=== PATIENT | female | born 1970 | race Hispanic/Latino ===

== ENCOUNTER 2025-03-07 07:25 | Day surgery (SDC) | payer OTHER ==
[2025-03-05 10:31] VITALS: BP 137/81; PULSE 61; RESP 18; TEMP 97.9
[2025-03-05 10:31] LABS: BASOPHILS # (AUTO) 0.01 K/uL (0.00-0.20); BASOPHILS % (AUTO) 0.2 % (0.0-5.0); EOSINOPHILS % (AUTO) 3.3 % (0.0-8.0); HEMATOCRIT 41.3 % (36-48); IMMATURE GRANULOCYTE ABSOLUTE 0.01 K/uL (0-1); LYMPHOCYTES # (AUTO) 2.2 K/uL (1.0-4.8); LYMPHOCYTES % (AUTO) 37.5 % (21.0-51.0); MEAN CORPUSCULAR HEMOGLOBIN 28.5 pg (27.0-33.0); MEAN CORPUSCULAR HGB CONC 32.4 g/dL (32.0-36.0); MEAN CORPUSCULAR VOLUME 87.7 fL (79-99); MONOCYTES # (AUTO) 0.5 K/uL (0.1-1.0); MONOCYTES % (AUTO) 8.4 % (3.0-13.0); NEUTROPHILS % (AUTO) 50.4 % (40.0-77.0); PLATELET COUNT (AUTO) 252 K/uL (130-400); RED BLOOD CELL COUNT(AUTO) 4.71 MIL/uL (4.00-5.50); RED CELL DISTRIBUTION WIDTH 13.9 % (11.0-15.5)
[2025-03-05 10:43] LABS: CREATININE 0.6 mg/dL (0.5-1.0); POTASSIUM 4.5 mmol/L (3.5-5.1)
[2025-03-05 11:02] LABS: INR 0.96 (0.85-1.15); PROTHROMBIN TIME 10.2 SEC (9.6-11.6)
[2025-03-05 11:04] LABS: PARTIAL THROMBOPLASTIN TIME 28.6 SEC (26.3-35.5)
--- NOTE | 2025-03-05 11:09 | EKG ---
[facility] Test Date: 2025-03-05 Test Time: 10:23:02 Pat Name: FRANKY [place] Department: [facility] Room: Gender: [employer] Director: [id number] : 1970 Requested By: SANTIAGO MCLEAN Order Number: [id number] Reading MD: Tom Carrera Measurements Intervals [place] Rate: 55 P: 35 AL: 149 QRS: 21 QRSD: 97 T: 20 QT: 427 QTc: 408 Interpretive Statements Sinus rhythm No previous ECG available for comparison Electronically Signed On 03-05-2025 16:18:47 CDT by Tom Carrera Please click the below link to view image of tracing.
[~2025-03-07] VITALS: Ht 165.1 cm; Wt 76.8 kg
[2025-03-07] VITALS (13 sets, daily range): BP systolic 106–121; BP diastolic 56–75; PULSE 57–66; RESP 14–18; TEMP 97–97.5
[~2025-03-07 07:25] MED LIST: ESTR0.5T2 PO; LEVO50CA5 PO; MEDR2.5T6 PO; MULT-700 PO; [UNRECOGNIZED DRUG - OTHER] CHEW
[2025-03-07] MEDS: ceFAZolin SODIUM 2 GM VIAL ONE (07:53)
[2025-03-07] MEDS: metRONIDazole 500MG/100ML BAG 200 ML ONE (07:53)
[2025-03-07] MEDS ORDERED: INDOCYANINE GREEN 25 MG VIAL IJ ONE (09:14)
[2025-03-07] MEDS: INDOCYANINE GREEN 25 MG VIAL IJ ONE (09:20)
[2025-03-07] MEDS ORDERED: SUGAMMADEX SODIUM 200 MG/2 ML VIAL IV ONE (09:28)
[2025-03-07] MEDS ORDERED: MIDAZOLAM HCL 1 MG/ML 2ML VIAL ONE (09:31)
[2025-03-07] MEDS ORDERED: LIDOCAINE PF 100MG/5ML (2%) SYRINGE 5ML ONE (09:31)
[2025-03-07] MEDS ORDERED: proPOFol 10 MG/ML 20ML VIAL IV ONE (09:31)
[2025-03-07] MEDS ORDERED: SUCCINYLCHOLINE CHLORIDE 20 MG/ML 10 ML VIAL ONE (09:31)
[2025-03-07] MEDS ORDERED: BUPIvacaine/PF 0.25% 30ML VIAL IJ ONE (09:32)
[2025-03-07] MEDS ORDERED: FENTanyl CITRate PF 50 MCG/1 ML 2ML VIAL ONE (09:32)
[2025-03-07] MEDS ORDERED: rocuRONium bROMide 10MG/1ML 5ML VL ONE ×2 (09:32→10:22)
[2025-03-07] MEDS ORDERED: ondanSETRON 4MG INJ ONE ×2 (09:44→11:19)
[2025-03-07] MEDS ORDERED: dexaMETHasone SOD PHOSPHATE 10MG/ML 1ML VIAL ONE ×2 (09:44→11:18)
[2025-03-07] MEDS: LACTATED RINGERS 1000ML 1,000 ML IV ONE (10:05)
--- NOTE | 2025-03-07 10:43 | OP ---
Operative Note: DATE OF PROCEDURE: 03/07/25 SURGEON: SANTIAGO MCLEAN MD INJECTION MOLD TOOLING TECHNICIAN: Boogie Mclean MD p.a. C ANESTHESIA: General and local ANESTHESIOLOGIST/DATA MINING ANALYST: [facility] anesthesia team PREOPERATIVE DIAGNOSIS: Symptomatic cholelithiasis POSTOPERATIVE DIAGNOSIS: As above SYNOPSIS: Robotic cholecystectomy with IC green cholangiogram performed without complication PROCEDURE: Robotic assisted cholecystectomy with IC green intraoperative cholangiogram ESTIMATED BLOOD LOSS: Minimal, less than 20 cc INDICATIONS: As above DESCRIPTION OF PROCEDURE: After standard precautions and preparations were undertaken a Veress needle and optical trocar were used to enter the abdominal cavity. All other instruments were placed under direct vision. The robotic system was docked in the standard fashion. We retracted the gallbladder fundus cephalad and began working around the infundibulum. A critical view of safety was achieved by identifying a single duct and single vascular structure entering the infundibulum. The duct was verified to be the cystic duct utilizing IC green and firefly visual technology to perform an intraoperative cholangiogram. We could trace the cystic duct back to the junction of the common bile and common hepatic duct and follow these such that we could see passage of bile into the duodenum. The structures were clipped and divided and monopolar cautery was used to remove the attachments between the gallbladder and gallbladder fossa. The specimen was placed in an Endo-Catch bag and removed from the abdominal cavity without issue. Prior to ending the case we verified that the patient appeared hemostatic with no leakage of bile and the clips were in their appropriate locations. All instrument counts were verified as correct. SANTIAGO MCLEAN MD March 07, 2025 10:43
[2025-03-07] MEDS ORDERED: ketOROlac 30MG VIAL (30MG/ML) ONE ×2 (10:47→12:36)
[2025-03-07] MEDS: FENTanyl CITRate PF 50 MCG/1 ML 2ML VIAL ONE (11:09)
[2025-03-07] MEDS ORDERED: dexaMETHasone SOD PHOSPHATE 4 MG/ML 1ML VIAL ONE (11:18)
--- NOTE | 2025-03-07 12:14 | NUR ---
DO NOT DRIVE FOR 24 HOURS NO ALCOHOL X 24 HOURS. Low Fat [place] diet. No lifting more than 15 lbs x 1 Month. KEEP YOUR APPOINTMENT WITH YOUR DOCTOR CALL YOUR DOCTOR IF YOU HAVE SIGNS OF INFECTION: INCREASED SWELLING, REDNESS, DISCHARGE, FEVER CALL YOUR DOCTOR IF YOU HAVE WORSENING PAIN OR ANY CONCERNS.FOLLOW DISCHARGE INSTRUCTIONS EDUCATIONAL HANDOUTS PROVIDED AND SIGNED FOR. Full and complete discharge instructions given to Patient and Family both verbally and in writing. Explained SURGICAL procedure precautions and follow up. All questions answered. PIV removed with catheter tip intact. Home with Family W/C to POV.
[2025-03-07] MEDS ORDERED: GLYCOPYRROLATE 0.2 MG/ML 5 ML VIAL ONE (12:36)
[2025-03-07] MEDS ORDERED: NEOSTIGMINE METHYLSULFATE 1MG/ML IV ONE (12:36)
--- NOTE | 2025-03-07 13:35 | PN ---
GENERAL SURGERY PROGRESS NOTE Date/Time Patient Seen: [ 03/07/2025 11:30 a.m.] Problem List: [ ] Interval History: [Postop day 0. Pain tolerable with p.r.n. medication. ] Physical Examination: ABD: [Incisions clean, dry and intact, Dermabond in place Vital Signs (last 8hr) Date Time Temp Pulse Resp B/P (MAP) Pulse Ox O2 Delivery O2 Flow Rate FiO2 03/07/25 11:55 57 14 115/64 98 21 03/07/25 11:40 97.5 63 14 114/67 99 Room Air 21 03/07/25 11:35 97.3 65 15 121/65 98 Room Air 21 03/07/25 11:30 97.3 60 15 121/67 98 Room Air 21 03/07/25 11:25 97.3 59 14 106/61 98 Room Air 21 03/07/25 11:23 21 03/07/25 11:20 97.3 60 14 112/62 97 Room Air 21 03/07/25 11:15 97.3 59 15 115/64 97 Room Air 21 03/07/25 11:10 97.3 60 17 119/69 98 Nonrebreathing Mask 10.0 100 03/07/25 11:05 97.3 59 15 113/61 98 Nonrebreathing Mask 10.0 100 03/07/25 11:00 97.3 66 15 109/61 98 Nonrebreathing Mask 10.0 100 03/07/25 10:55 97.3 64 15 112/62 95 Nonrebreathing Mask 10.0 100 03/07/25 10:50 97.3 61 15 108/56 96 Nonrebreathing Mask 10.0 100 03/07/25 08:00 97.0 60 18 116/75 99 Room Air Laboratory: [ ] Diagnostics / Radiology: [Copy/Paste Echos/Imaging Report here] Impression and Plan: [Plan is for discharge home today with outpatient follow up in 5-10 days, sooner if needed. ] JULIENNE MCLEAN March 07, 2025 13:35
== END 2025-03-07 12:15 | disposition home or self-care (01) ==
LOC: DAH 07:25
PROVIDERS: ATTEND Surgery
DX: K80.10 Calculus of gallbladder with chronic cholecystitis without obstruction (principal); D13.5 Benign neoplasm of extrahepatic bile ducts; K91.1 Postgastric surgery syndromes; Z79.899 Other long term (current) drug therapy; Z79.890 Hormone replacement therapy; Z87.442 Personal history of urinary calculi; Z86.39 Personal history of other endocrine, nutritional and metabolic disease; Z80.0 Family history of malignant neoplasm of digestive organs; Z79.01 Long term (current) use of anticoagulants
CPT/HCPCS: 80048; 84703; 85025; 85610; 85730; 86850; 86900; 86901; 36415; 93005; 47563; 88304; J1885 ×2; A4663; J7030; A4215 ×2; J7120; J3010 ×2; J1100 ×2; J0330; J0665 ×2; J3490 ×4; J2003; J2250; J2704; J2405 ×2; J2710; J0690 ×2; A4649; A4930 ×2; A4223; A4222; A4221; A4600